=== PATIENT | female | born 1995 | race Caucasian/White ===

== ENCOUNTER 2020-07-06 13:55 | Emergency (ER) | payer OTHER ==
[2020-07-06 14:10] VITALS: BP 116/67; PULSE 69; TEMP 98.8; BMI 25.8
[2020-07-06 15:00] LABS: BASO % 0.6 % (0-2.0); EOS % 0.9 % (0-4.5); HEMATOCRIT 38.4 % (32.4-45.2); HEMOGLOBIN 12.1 GM/dL (10.7-15.3); LYMPH % 43.8 % (8-40); MCH 23.6 pg (25.7-33.7); MCHC 31.5 g/dl (32.0-36.0); MEAN CELL VOLUME 74.8 fl (80-96); MEAN PLT VOLUME 9.6 fl (7.5-11.1); MONO % 12.2 % (3.8-10.2); NEUT % 42.5 % (42.8-82.8); PLATELET COUNT 191 K/MM3 (134-434); RBC 5.13 M/mm3 (3.60-5.2); RDW 13.4 % (11.6-15.6); WHITE BLOOD COUNT 4.1 K/mm3 (4.0-10.0)
[2020-07-06 15:03] LABS: EPI CELLS 14 /uL (0-25.1); HYALINE CASTS 0 /uL (0-3.1); URINE APPEARANCE CLEAR; URINE BACTERIA 159 /uL (0-1359); URINE BILIRUBIN NEGATIVE (NEGATIVE); URINE COLOR YELLOW; URINE GLUCOSE (UA) NEGATIVE (NEGATIVE); URINE KETONE NEGATIVE (NEGATIVE); URINE LEUK ESTERASE NEGATIVE (NEGATIVE); URINE NITRITE NEGATIVE (NEGATIVE); URINE PROTEIN NEGATIVE (NEGATIVE); URINE RBC 3 /uL (0-23.9); URINE UROBILINOGEN 0.2 mg/dL (0.2-1.0); URINE WBC 3 /uL (0-25.8)
[2020-07-06 15:04] LABS: HCG,QUALITATIVE URINE Negative
[2020-07-06 15:24] LABS: CHLORIDE 107 mmol/L (98-107); POTASSIUM 4.3 mmol/L (3.5-5.1); SODIUM 137 mmol/L (136-145)
[2020-07-06 15:25] LABS: CALCIUM 9.4 mg/dL (8.5-10.1)
[2020-07-06 15:26] LABS: ANION GAP 3 MMOL/L (8-16); BLOOD UREA NITROGEN 5.8 mg/dL (7-18); CO2 28 mmol/L (21-32); GLUCOSE,RANDOM 78 mg/dL (74-106)
[2020-07-06 15:29] LABS: CREATININE 0.8 mg/dL (0.55-1.3)
== END 2020-07-06 17:57 | disposition home or self-care (01) ==
LOC: JER 13:55
DX: N93.9 Abnormal uterine and vaginal bleeding, unspecified (principal); R10.2 Pelvic and perineal pain
CPT/HCPCS: 36415; 76830-TC; 80048; 81003; 84702; 84703; 85025; 86850; 86900; 86901; 87086; 99284-25